=== PATIENT | female | born 1970 | race Caucasian/White ===

== ENCOUNTER 2021-10-09 22:26 | Emergency (ER) | payer BC, SELFPAY ==
[2021-10-09 22:27] VITALS: BP 152/77; PULSE 80; RESP 18; TEMP 36.3; O2SAT 97; BMI 27.9
--- NOTE | 2021-10-09 22:30 | HMH.EDGENADL ---
ED Disposition Clinical Impression: RUQ abdominal pain Disposition: Home, Self-Care Condition on Discharge: Good Additional Instructions: Please return to the ED with any new or worsening symptoms. Prescriptions: Sucralfate [Carafate 1gm/10mL Susp] 10 ml PO ACHS #100 ml Transmission Status: Pending to [id number] Omeprazole [Omeprazole 40mg Capsule] 40 mg PO DAILY #14 cap Transmission Status: Pending to [id number] Ondansetron [Zofran 4mg ODT] 4 mg PO TIDP PRN #12 tab PRN Reason: Nausea Transmission Status: Pending to [id number] Referrals: Jesse Humphreys [Primary Care Provider] - - Critical Care Critical Care Time: No Attestation: On , the high probability of a clinically significant, sudden or life threatening deterioration of the following system(s) required my full and direct attention, intervention and personal management. The time I documented below is in addition to time spent performing reported procedures but includes the following listed in this critical care notation. Medical Decision Making - Medical Records Medical records reviewed: Yes: I reviewed the patient's medical records. - Magdi Inquiry Pt receiving controlled substance: No Vital Signs: 10/09/21 22:27 Temperature 97.3 F L Temperature Source Oral Pulse Rate [Left Radial] 80 Respiratory Rate 18 Blood Pressure [Right Arm] 152/77 H Blood Pressure Mean [Right Arm] 102 Blood Pressure Source [Right Arm] Automatic Cuff Blood Pressure Position [Right Arm] Sitting 02 Sat by Pulse Oximetry 97 Oxygen Delivery Method Room Air - Lab Data Lab Results 10/09/21 22:33: Urine Color Yellow, Urine Appearance Cloudy, Urine pH 7.5, Ur Specific [place] 1.020, Urine Protein Negative, Urine Glucose (UA) Negative, Urine Ketones Negative, Urine Blood Negative, Urine Nitrate Negative, Urine Bilirubin Negative, Urine Urobilinogen 0.2, Ur Leukocyte Esterase Negative, Urine WBC Occasional, Ur Squamous Epith Cells 5-10, Amorphous Sediment 3+ 10/09/21 22:33: Urine HCG, Qual Negative 10/09/21 22:43: WBC 7.5, RBC 4.49, Hgb 13.7, Hct 43.6, MCV 97.1, MCH 30.5, MCHC 31.4 L, RDW 13.4, Plt Count 266, MPV 9.0, Neut % (Auto) 54.7, Lymph % (Auto) 36.3, [place] % (Auto) 5.3, Eos % (Auto) 1.9, Baso % (Auto) 1.7, Neut # (Auto) 4.1, Lymph # (Auto) 2.7, Tal[place] # (Auto) 0.4, Eos # (Auto) 0.1, Baso # (Auto) 0.1 10/09/21 22:43: Sodium 143, Potassium 3.8, Chloride 107, Carbon Dioxide 31 H, Anion Gap 8.8, BUN 14, Creatinine 0.80, Estimated Creat Clear 95, Estimated GFR 75, Est GFR ( Amer) 91, Glucose 113 H, Calcium 9.3, Total Bilirubin 0.3, AST 28, ALT 22, Alkaline Phosphatase 58, Troponin I < 0.01, Total Protein 6.8, Albumin 4.3, Globulin 2.5, Albumin/Globulin Ratio 1.7 10/09/21 22:43: Lipase 93 Result diagrams: 10/09/21 22:43 10/09/21 22:43 Orders (Tests/Meds): ORDERS Category Date Time Status Hepatitis Panel (4) Stat Lab 10/10/21 00:12 Ordered Troponin I Q3H Lab 10/10/21 01:45 Ordered Troponin I Q3H Lab 10/10/21 04:45 Ordered Medical Decision Narrative: Patient is a 51-year-old female presents the ED today for further evaluation of epigastric right upper quadrant abdominal pain. Patient is well-appearing on initial evaluation, afebrile, nontachycardic, blood pressure within normal limits. Differential diagnosis for this patient includes cholecystitis, Cholelithiasis, gastritis, ACS, pneumonia, kidney injury, UTI. Will further evaluate patient with CBC, CMP, lipase, right upper quadrant ultrasound, troponin, EKG. I believe the risk of pneumonia in this patient is low with no clinical symptoms of fever, no cough at home, primary differential would include gallbladder disease or gastritis. At this time in this well-appearing patient his pain has almost resolved, and I do believe CT scan is indicated at this time, patient should change on reassessment we will reevaluate this. Patient reassessed after ultrasound, remains well-ap
--- NOTE | 2021-10-09 22:44 | US_ITS ---
PROCEDURE INFORMATION: Exam: US Abdomen, Limited; Right Upper Quadrant Exam date and time: 10/09/2021 10:44 PM Age: 51 years old Clinical indication: Abdominal pain; Localized; Right upper quadrant (ruq); Patient HX: RO gallstones; Additional info: Ruq pain and bloating TECHNIQUE: Imaging protocol: US abdomen. Real time ultrasound with image documentation. Limited exam focused on the right upper quadrant. COMPARISON: No relevant prior studies available. FINDINGS: Liver: Increased echogenicity of the hepatic parenchyma with decrease in conspicuity of the portal markings. Gallbladder: Gallbladder wall is significantly thickened, measuring up to 8 mm in thickness. There are no gallstones or gallbladder sludge identified. Common bile duct: Normal. No stones. No dilation. Pancreas: Visualized pancreas is unremarkable. Right kidney: Normal. No mass. No hydronephrosis. IMPRESSION: 1. Gallbladder wall is significantly thickened, measuring up to 8 mm in thickness. There are no gallstones or gallbladder sludge identified. This appearance is more common for acute hepatitis than acute cholecystitis. 2. Hepatic steatosis.
--- NOTE | 2021-10-09 22:49 | ECG_ITS ---
APPROVED REPORT Exam: Resting ECG HR:64 bpm ECG Measurements Heart Rate 64 AXES NJ 142 P 75 QRSd 93 QRS 71 QT 407 T 53 QTc 416 Conclusion SINUS RHYTHM NORMAL ECG UNCONFIRMED REPORT Electronically signed by : Obie Quevedo MD 10/13/2021 21:12:49
[2021-10-09 22:50] LABS: Microscopic, Urine URINE MICROSCOPIC (MICROSCOPIC)
[2021-10-09 22:54] LABS: Appearance,Urine CLOUDY (Clear); Bilirubin,Urine Negative (Negative); Blood, Urine Negative (Negative); Color,Urine YELLOW (Yellow); Glucose,Urine (UA) Negative (Negative); Ketones,Urine Negative (Negative); Leukocyte Esterase,Urine Negative (Negative); Nitrate,Urine Negative (Negative); PH,Urine 7.5 (5.0-8.5); Protein,Urine Negative (Negative); Urine Pregnancy, HCG Qual. Negative (Negative); Urobilinogen,Urine 0.2 EU/dl (0.2)
[2021-10-09 22:58] LABS: Lipase 93 U/L (23-300)
[2021-10-09 22:59] LABS: Amorphous Sediment,Urine 3+ /lpf; WBC,Urine Occasional #/hpf (0-3)
[2021-10-09 22:59] LABS: Alanine Aminotransferase 22 U/L (12-78); Albumin Level 4.3 g/dl (3.5-5.0); Albumin/Globulin Ratio 1.7 (1.1-1.8); Alkaline Phosphatase 58 U/L (38-126); Anion Gap 8.8 mEq/L (5-15); Aspartate Amino Transferase 28 U/L (14-36); Bilirubin,Total 0.3 mg/dl (0.2-1.3); Blood Urea Nitrogen 14 mg/dl (7-17); Calcium 9.3 mg/dl (8.4-10.2); Carbon Dioxide 31 mmol/L (22.0-30.0); Chloride 107 mmol/L (98-107); Creatinine Clearance Estimated 95 mL/min (50-200); Estimated Glomerular Filt Rate 75 ml/min (>60); GFR (African American) 91 ML/MIN (>60); Globulin 2.5 g/dL (1.3-3.2); Glucose 113 mg/dl (74-100); Potassium 3.8 mmoL/L (3.5-5.1); Sodium 143 mmol/L (136-145); Total Protein,Serum 6.8 g/dl (6.3-8.2)
[2021-10-09 23:01] LABS: Basophils # 0.1 K/mm3 (0-0.2); Basophils % 1.7 % (0.1-2.0); Eosinophils # 0.1 K/mm3 (0.0-0.4); Eosinophils % 1.9 % (0.1-12.0); Hematocrit 43.6 % (37.0-47.0); Hemoglobin 13.7 g/dL (12.2-16.2); Lymphocytes # 2.7 K/mm3 (0.7-4.5); Lymphocytes % 36.3 % (10-50); Mean Corpuscular HGB Conc 31.4 g/dL (31.8-35.4); Mean Corpuscular Hemoglobin 30.5 pg (27.0-31.2); Mean Corpuscular Volume 97.1 fl (81-99); Monocytes # 0.4 K/mm3 (0.1-1.0); Monocytes % 5.3 % (1.7-9.3); Neutrophils # 4.1 K/mm3 (1.8-7.8); Neutrophils % 54.7 % (37.0-80.0); Platelet Count 266 K/mm3 (142-424); Red Blood Count 4.49 M/mm3 (4.20-5.40); Red Cell Distribution Width 13.4 % (11.5-17.5); White Blood Count 7.5 K/mm3 (4.8-10.8)
[2021-10-09 23:18] LABS: Troponin I < 0.01 ng/ml (0.00-0.034)
[2021-10-10 00:36] VITALS: BP 139/69; PULSE 58; RESP 16; TEMP 36.6; O2SAT 97
[2021-10-12 11:21] LABS: Hep A Ab, IgM Negative (Negative); Hepatitis B Core Antibody IgM Negative (Negative); Hepatitis B Surface Antigen Negative (Negative); Hepatitis C Antibody <0.1 s/co ratio (0.0-0.9)
== END 2021-10-10 00:38 | disposition home or self-care (01) ==
PROVIDERS: Emergency Provider Student in an Organized Health Care Education/Training Program; PCP Family Medicine
DX: R10.11 Right upper quadrant pain (principal); R10.13 Epigastric pain
CPT/HCPCS: 76705; 80053; 80074; 81001; 81025; 83690; 84484; 85025; 93005; 99283

== ENCOUNTER 2024-10-02 14:25 | Emergency (ER) | payer BC, SELFPAY ==
[2024-10-02 14:27] VITALS: BP 162/93; PULSE 88; RESP 18; TEMP 36.6; O2SAT 95; BMI 29.2
--- NOTE | 2024-10-02 14:28 | HMH.EDGENADL ---
Discharge Plan Disposition Patient Disposition: Home, Self-Care Condition: Good Prescriptions Prescriptions: No Action No Known Home Medications Referrals Follow up/Referrals: Jim Vyas DO [Staff Physician] - See instructions (Fall, left shoulder injury) Jesse Humphreys [Primary Care Provider] - See instructions Activity Restrictions/Add. Instructions Additional Instructions/Restrictions: As we discussed I have given you Dr. Vyas's number. Please call in the morning to make your appointment. Continue taking Tylenol alternating with Motrin for pain and swelling. If you have continued new or worsening signs or symptoms follow-up with your PCP or return to the ER as needed. Clinical Impressions Clinical Impression: Injury of shoulder Qualifiers: Encounter type: initial encounter Laterality: left Qualified Code(s): S49.92XA - Unspecified injury of left shoulder and upper arm, initial encounter Mild sprain of right ankle Qualifiers: Encounter type: initial encounter Qualified Code(s): S93.401A - Sprain of unspecified ligament of right ankle, initial encounter Stand Alone Forms Stand Alone Forms: Work/School Release Instructions Patient Instructions: Shoulder Sprain, DI for Ankle Sprain Print Language Print Language: Yoruba Discharge ED Provider: Dannie Langston General Adult HPI <TENA Scott - Last Filed: 10/02/24 18:06> General Chief complaint: Fall Stated complaint: AO fall 10/02 left arm/shoulder pain Time Seen by Provider: 10/02/24 14:28 History of Present Illness HPI narrative: Patient presents for evaluation and of a fall. Patient was carrying a garbage and tripped causing a right ankle injury and a left shoulder injury. Patient was able to ambulate on her ankle and can move her shoulder but both are painful. She denies any numbness tingling did not strike her head did not lose consciousness. Related Data Home Medications ?Medication ?Instructions ?Recorded ?Confirmed No Known Home Medications 10/02/24 10/02/24 Allergies Allergy/AdvReac Type Severity Reaction Status Date / Time No Known Allergies Allergy Verified 10/09/21 22:47 PFSH <TENA Scott - Last Filed: 10/02/24 18:06> [facility] Disclaimer: The information contained in this section may have been updated after the patient was seen, as this information can be updated by other users. Surgical History (Updated 10/02/24 @ 14:41 by Kellee Michele RN) H/O section Social History (Updated 10/02/24 @ 18:06 by TENA Scott) Smoking Status: Unknown if ever smoked alcohol intake: never current occupational status: employed Travel in the last 8 weeks: None Have you lived/traveled outside [place] in past 30 days?: No Contact w/someone who lives/traveled outside US past 30 days?: No Exposure to someone with infectious disease in past 14 days?: No Do you have a fever (greater than 100.4 F or 38 C)?: No Have you tested positive for COVID-19: No Exposed to someone with COVID-19 in past 14 days?: No Do you have a sore throat?: No Do you have a cough?: No Do you have any weakness?: No Do you have any diarrhea?: No Are you experiencing any unusual bleeding?: No Do you have any muscle aches/pain?: No Do you have any abdominal pain?: No Are you experiencing loss of taste or smell?: No Other Medical History Have you received the Flu Vaccine for this season: No Have you received the Pneumonia Vaccine: No <TENA Scott - Last Filed: 10/02/24 18:06> ROS Obtained: Yes Systems reviewed as appropriate & no additional complaints except as documented Physical Exam <TENA Scott - Last Filed: 10/02/24 18:06> General General appearance: alert and in no apparent distress Respiratory Respiratory exam: Present normal lung sounds bilaterally Cardiovascular Cardiovascular exam: Present regular rate Neurological Exam Neurological exam: Present alert, oriented X3, CN II-XII intact and normal gait; Absent motor sensory deficit Medical Decision Making <TENA Scott - Last Filed: 10/02/24 18:06> Medical Records Screening: Per USPSTF and CDC recommendations, given the prevalence of disease in our region, it is our hospital?s policy to screen for HIV and viral Hepatitis for all patients aged 18 and over and those with ongoing risk factors. Magdi Inquiry Pt receiving controlled substance: No Vital Signs: 10/02/24 14:27 10/02/24 16:49 Temperature 97.8 F 98.2 F Temperature Source Oral Oral Pulse Rate 70 Pulse Rate [Radial] 88 Respiratory Rate 18 16 Blood Pressure 142/78 H Blood Pressure [Right Arm] 162/93 H Blood Pressure Mean [Right Arm] 116 Blood Pressure Source Automatic Cuff Blood Pressure Source [Right Arm] Automatic Cuff Blood Pressure Position [Right Arm] Sitting 02 Sat by Pulse Oximetry 95 Oxygen Delivery Method Room Air Room Air Orders (Tests/Meds): ED MEDICATIONS Discontinued Medications Generic Name Dose Route Start Last Admin Trade Name Diane PRN Reason Stop Dose Admin Acetaminophen 1,000 mg 10/02/24 14:38 10/02/24 14:45 Acetaminophen 500mg Tab PO 10/02/24 14:39 1,000 mg ONCE ONE Administration Ibuprofen 800 mg 10/02/24 14:38 10/02/24 14:45 Ibuprofen 400 Mg Tablet PO 10/02/24 14:39 800 mg ONCE ONE Administration ORDERS Category Date Time Status Ankle XR -Right minimum 3 Views [XR ankle RT min 3V] Exams 10/02/24 14:35 Completed Stat Foot XR right 2 views [XR foot RT 2V] Stat Exams 10/02/24 14:35 Completed Humerus XR left [XR humerus LT] Stat Exams 10/02/24 14:35 Completed Shoulder XR left minimum 2 views [XR shoulder LT min 2V Exams 10/02/24 14:35 Completed ] Stat Tibia/fibula XR right 2 views [XR tibia fibula RT 2V] Exams 10/02/24 14:35 Completed Stat Medical Decision Narrative: In summary patient is a 54-year-old female who presents to the emergency department for evaluation of a fall. Patient is hemodynamically stable upon arrival, afebrile. Patient has swelling at the right lateral malleolus and tenderness to palpation but no palpable bony deformity. She has full but painful range of motion and is neurovascular intact distally. Patient also has tenderness to palpation around the left shoulder girdle but again no palpable bony deformity. She is neurovascularly distally. I find no evidence of contusions abrasions deformities ecchymosis anywhere on her person. She has no C-spine tenderness she has full range of motion of her C-spine via [place] head injury rules and [place] C-spine rules those are clear. Differential diagnosis includes sprain versus fracture versus connective tissue injury Ceter[place]. Initial workup will be conducted with plain film x-rays. Initial interventions include Tylenol and ibuprofen. Initial workup reviewed by me and my informal interpretation of her plain film x-ray shows no acute fractures prior to radiology read. Upon repeat evaluation patient is able to bear weight and does have full range of motion remains neurovascular intact distally.. Given this patient is appropriate discharge with a sling for comfort for her left shoulder and referral to orthopedics for further evaluation for potential soft tissue/connective tissue injury. <Dannie Langston MD - Last Filed: 10/02/24 18:45> Vital Signs: 10/02/24 14:27 10/02/24 16:49 Temperature 97.8 F 98.2 F Temperature Source Oral Oral Pulse Rate 70 Pulse Rate [Radial] 88 Respiratory Rate 18 16 Blood Pressure 142/78 H Blood Pressure [Right Arm] 162/93 H Blood Pressure Mean [Right Arm] 116 Blood Pressure Source Automatic Cuff Blood Pressure Source [Right Arm] Automatic Cuff Blood Pressure Position [Right Arm] Sitting 02 Sat by Pulse Oximetry 95 Oxygen Delivery Method Room Air Room Air Orders (Tests/Meds): ED MEDICATIONS Discontinued Medications Generic Name Dose Route Start Last Admin Trade Name Freq PRN Reason Stop Dose Admin Acetaminophen 1,000 mg 10/02/24 14:38 10/02/24 14:45 Acetaminophen 500mg Tab PO 10/02/24 14:39 1,000 mg ONCE ONE Administration Ibuprofen 800 mg 10/02/24 14:38 10/02/24 14:45 Ibuprofen 400 Mg Tablet PO 10/02/24 14:39 800 mg ONCE ONE Administration ORDERS Category Date Time Status Ankle XR -Right minimum 3 Views [XR ankle RT min 3V] Exams 10/02/24 14:35 Completed Stat Foot XR right 2 views [XR foot RT 2V] Stat Exams 10/02/24 14:35 Completed Humerus XR left [XR humerus LT] Stat Exams 10/02/24 14:35 Completed Shoulder XR left minimum 2 views [XR shoulder LT min 2V Exams 10/02/24 14:35 Completed ] Stat Tibia/fibula XR right 2 views [XR tibia fibula RT 2V] Exams 10/02/24 14:35 Completed Stat Medical Decision Narrative: In summary patient is a 54-year-old female who presents to the emergency department for evaluation of a fall. Patient is hemodynamically stable upon arrival, afebrile. Patient has swelling at the right lateral malleolus and tenderness to palpation but no palpable bony deformity. She has full but painful range of motion and is neurovascular intact distally. Patient also has tenderness to palpation around the left shoulder girdle but again no palpable bony deformity. She is neurovascularly distally. I find no evidence of contusions abrasions deformities ecchymosis anywhere on her person. She has no C-spine tenderness she has full range of motion of her C-spine via [place] head injury rules and [place] C-spine rules those are clear. Differential diagnosis includes sprain versus fracture versus connective tissue injury Cetera. Initial workup will be conducted with plain film x-rays. Initial interventions include Tylenol and ibuprofen. Initial workup reviewed by me and my informal interpretation of her plain film x-ray shows no acute fractures prior to radiology read. Upon repeat evaluation patient is able to bear weight and does have full range of motion remains neurovascular intact distally.. Given this patient is appropriate discharge with a sling for comfort for her left shoulder and referral to orthopedics for further evaluation for potential soft tissue/connective tissue injury. I was consulted by the DION, and we discussed the complexity of the problems being addressed. I approved the treatment and management plan for this patient's care in the Emergency Department, thus performing a substantive portion of the medical decision making. I independently interpreted patient's imaging, negative for acute bony abnormality. Dannie Langston MD Critical Care <TENA Scott - Last Filed: 10/02/24 18:06> Critical Care Time Critical Care Time: No
--- NOTE | 2024-10-02 14:30 | PC.NURSE ---
MO BAKER AT BEDSIDE
--- NOTE | 2024-10-02 14:35 | XR_ITS ---
FINAL REPORT CLINICAL HISTORY: Fall FINDINGS: Left humerus Two views were obtained. There is no fracture or dislocation. The joint spaces appear normal. No soft tissue abnormality is identified. IMPRESSION: No acute process. Reviewed, Interpreted and Dictated by Mark Quijano MD Transcribed by Dolores Macias Authenticated and [facility]
--- NOTE | 2024-10-02 14:35 | XR_ITS ---
FINAL REPORT CLINICAL HISTORY: Fall FINDINGS: Right tibia fibula Two views were obtained. There is no fracture or dislocation. The joint spaces appear normal. No soft tissue abnormality is identified. IMPRESSION: No acute process. Reviewed, Interpreted and Dictated by Mark Quijano MD Transcribed by Dolores Macias Authenticated and [facility]
--- NOTE | 2024-10-02 14:35 | XR_ITS ---
FINAL REPORT CLINICAL HISTORY: Fall FINDINGS: Left shoulder Three views were obtained. There is no fracture or dislocation. There are mild hypertrophic changes of the AC joint. No soft tissue abnormality is identified. IMPRESSION: No acute process. Reviewed, Interpreted and Dictated by Mark Quijano MD Transcribed by Dolores Macias Authenticated and [facility]
--- NOTE | 2024-10-02 14:35 | XR_ITS ---
FINAL REPORT CLINICAL HISTORY: Fall FINDINGS: Right foot Two views were obtained. There is no fracture or dislocation. The joint spaces appear normal. No soft tissue abnormality is identified. IMPRESSION: No acute process. Reviewed, Interpreted and Dictated by Mark Quijano MD Transcribed by Dolores Macias Authenticated and [facility]
--- NOTE | 2024-10-02 14:35 | XR_ITS ---
FINAL REPORT CLINICAL HISTORY: Fall FINDINGS: Right ankle Three views were obtained. There is no fracture or dislocation. The joint spaces appear normal. No soft tissue abnormality is identified. IMPRESSION: No acute process. Reviewed, Interpreted and Dictated by Mark Quijano MD Transcribed by Dolores Macias Authenticated and [facility]
--- NOTE | 2024-10-02 14:43 | PC.NURSE ---
XR AT BEDSIDE
[2024-10-02] MEDS: ACETAMINOPHEN 500MG TAB 1000 MG PO (14:45)
[2024-10-02] MEDS: IBUPROFEN 400 MG TABLET 800 MG PO (14:45)
--- NOTE | 2024-10-02 15:18 | PC.NURSE ---
ROUNDED ON THE PT. THE PT VOICES THAT SHE DOES NOT NEED ANYTHING AT THIS TIME. CALL LIGHT IS WITHIN REACH OF THE PT.
[2024-10-02 16:49] VITALS: BP 142/78; PULSE 70; RESP 16; TEMP 36.8; O2SAT 98
== END 2024-10-02 16:51 | disposition home or self-care (01) ==
PROVIDERS: Emergency Provider Emergency Medicine; PCP Family Medicine
DX: M25.512 Pain in left shoulder (principal); M79.622 Pain in left upper arm; M25.571 Pain in right ankle and joints of right foot; S49.82XA Other specified injuries of left shoulder and upper arm, initial encounter; S93.401A Sprain of unspecified ligament of right ankle, initial encounter; W01.0XXA Fall on same level from slipping, tripping and stumbling without subsequent striking against object, initial encounter
CPT/HCPCS: 73030; 73060; 73590; 73610; 73620; 99284

== ENCOUNTER 2024-10-14 07:44 | Outpatient (CLI) | payer BC, SELFPAY ==
--- NOTE | 2024-10-14 07:45 | MR_ITS ---
FINAL REPORT TECHNIQUE: Multiplanar and multisequence imaging of the shoulder was obtained without contrast. CLINICAL HISTORY: shoulder pain fall x 2 weeks ago [facility] COMPARISON: None FINDINGS: Bones and joints: There is no acute fracture, edema, or pathologic marrow replacement. Acromioclavicular joint degenerative disease is present and there is osteophytosis which narrows the supraspinatus outlet. Rotator cuff: There is no full-thickness rotator cuff tendon tear. There is a partial tear of the articular side of the supraspinatus tendon anteriorly. No full-thickness tear of the supraspinatus or infraspinatus tendons is present. No biceps tendon dislocation is present. There is no fatty atrophy of the rotator cuff muscles. Labrum: No labral tear is identified. There is edema in the axillary recess and the inferior glenohumeral ligament, favor adhesive capsulitis. The biceps tendon is within normal limits. No biceps tendon tear is identified. Other: A small joint effusion is present, as well as a small amount of fluid in the subdeltoid bursa. IMPRESSION: Partial tear of the articular side of the supraspinatus tendon anteriorly. No full-thickness tear is identified. Edema in the axillary recess and inferior glenohumeral ligament, favor adhesive capsulitis. Reviewed, Interpreted and Dictated by Kassy Barnes MD Transcribed by Lexie Eid Authenticated and [facility]
== END 2024-10-14 23:59 | disposition home or self-care (01) ==
LOC: RAD 07:45
PROVIDERS: PCP Family Medicine; Visit Provider Physician Assistant
DX: M12.812 Other specific arthropathies, not elsewhere classified, left shoulder (principal)
CPT/HCPCS: 73221